=== PATIENT | female | born 1950 | race Caucasian/White ===

== ENCOUNTER 2020-07-23 07:25 | Day surgery (SDC) | payer MEDICARE, OTHER, MEDICAID, SELFPAY ==
[2020-07-23] MEDS: Tropicam./Phenyleph. (1/2.5%) 5 ML BTL OD ×3 (07:58→08:09)
[2020-07-23 07:59] VITALS: BP 134/71; PULSE 74; RESP 16; TEMP 36; O2SAT 95
[2020-07-23] MEDS: Balanced Salt Soln.-PLUS 500 ML BAG (09:16)
[2020-07-23] MEDS: Duovisc Viscoelastic System EACH 1 EACH (09:17)
[2020-07-23] MEDS: Lidocaine 1% Pres-Free 5 ML VIAL (09:18)
[2020-07-23] MEDS: Lidocaine 2% Jelly 6 ML SYR (09:20)
[2020-07-23] MEDS: Tetracaine 0.5% 4 ML BTL OD (09:21)
[2020-07-23] MEDS: Povidone-Iodine Ophth 30 ML BTL (09:21)
--- NOTE | 2020-07-23 09:39 | W.PM.DSUDISC ---
Discharge Plan Disposition Patient Disposition: HOME Condition: Good Discharge Details Attending Provider: Domenic Epstein Primary Care Provider: Deepika Hunt Home Meds and New Rx's Prescriptions: No Action prednisone 10 mg Tablet 10 mg PO DIRECTED RF: 0 ibuprofen 800 mg Tablet 800 mg PO TID RF: 0 lisinopril 20 mg Tablet 20 mg PO DAILY RF: 0 sertraline 100 mg Tablet 200 mg PO DAILY RF: 0 loperamide 2 mg Tablet 2 - 4 mg PO DAILY PRNRF: 0 amlodipine 5 mg Tablet 5 mg PO DAILY RF: 0 sulfamethoxazole-trimethoprim [Bactrim DS] 800-160 mg Tablet 1 tab PO Q12H RF: 0 omeprazole 40 mg Capsule,Delayed Release(Dr/Ec) 40 mg PO DAILY RF: 0 simvastatin 40 mg Tablet 40 mg PO DAILY RF: 0 aspirin 81 mg Capsule,Delayed Release(Dr/Ec) 81 mg PO DAILY RF: 0 lorazepam 0.5 mg Tablet 0.5 mg PO TID PRNRF: 0 ascorbic acid (vitamin C) [Vitamin C] 500 mg Capsule, Extended Release 500 mg PO DAILY RF: 0 loratadine 10 mg Tablet 10 mg PO DAILY RF: 0 cholecalciferol (vitamin D3) [Vitamin D3] 50 mcg (2,000 unit) Capsule 2,000 unit PO DAILY RF: 0 biotin 1,000 mcg Tablet,Chewable 1,000 mcg PO DAILY RF: 0 Discharge Instructions Stand Alone Forms: Post-op Topical Cataract, Donn Corrales (DSU) Discharge Orders Discharge Orders: Discharge Order (Routine); Ordered 07/23/20 Ordered By: Domenic Epstein DS: Diagnosis Discharge Diagnosis (1) Nuclear sclerotic cataract of right eye: Status: Resolved (2) Cortical cataract of right eye: Status: Resolved
--- NOTE | 2020-07-23 09:40 | ROE_ITS ---
Date of service: 07/23/20 Time of Service: 09:40 Operative Note Operative Note DATE OF PROCEDURE: 07/23/20 PRE-OP DIAGNOSIS: Nuclear/cortical cataract, right eye POST-OP DIAGNOSIS: same PROCEDURE: Cataract extraction using phacoemulsification with intraocular lens implant, right eye SURGEON: Domenic Epstein ANESTHESIA TYPE: Local By Surgeon and MAC Refer to Anesthesia Record ESTIMATED BLOOD LOSS: 0 PATHOLOGY: none sent COMPLICATIONS: None Patient was transported to: same day Patient's condition: stable Implants: [employer] / [employer] Tecnis [id number] intraocular lens Indications: Progressive decreased vision due to cataract, right eye Procedure Description: CATARACT SURGERY OPERATIVE REPORT PREOPERATIVE DIAGNOSIS: Nuclear/cortical cataract, right eye POSTOPERATIVE DIAGNOSIS: Same OPERATION: Cataract extraction using phacoemulsification with posterior chamber intraocular lens implant, right eye. 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: [employer] Vision / ENRIKE Tecnis ZCB00 IOL Power: + 22.5 diopters IOL Serial Number: [id number] Optic Diameter: 6.0mm Haptic/Overall Diameter: 13.0mm PHACO INFO: Josiah hurleypalmerflatturion Vision System with OZil and Active Fluidics Cumulative Dispersed Energy (CDE): 4.96 seconds SURGEON: Domenic Epstein MD, LAURA ANESTHESIA: Monitored Anesthesia Care (MAC), with local sub-tenon's anesthetic infiltration COMPLICATIONS: None SPECIMENS: None INDICATIONS FOR PROCEDURE: The patient is a 70-year-old lady with a history of diminished visual acuity in her right eye secondary to the development of nuclear and cortical cataract. The option of cataract surgery was offered to the patient and she felt she was symptomatic enough that she wished to proceed. PROCEDURE: The correct surgical eye was identified and marked as the right eye and the pupil was dilated in the preoperative area using mydriatics and cycloplegics. The dilated pupil size was 6.5 mm. Oral sedation was administered in the form of an Imprimis MKO Melt (midazolam 3mg/ketamine 25mg/ondansetron 2mg). The patient was brought to the operating room where cardiopulmonary monitoring was instituted and surgical time-out was performed, confirming the correct operative eye and IOL power. Topical anesthesia was administered and ophthalmic povidone-iodine 5% was instilled into the conjunctival fornices. Lidocaine gel was applied to the cornea and the katerina-ocular area was prepped with Betadine 10% solution and draped in the usual sterile fashion for intraocular surgery, including an aperture drape. A Tegaderm transparent film dressing was cut in half and used to cover the lashes and lid margins. Care was taken to sequester the lashes and lid margins under the Tegaderm dressing. A lid speculum was placed between the lids of the operative eye and the Jojo-Kimberley operating microscope was maneuvered into position. Madeline scissors were then used to make a conjunctival buttonhole approximately 6mm posterior to the limbus in the inferonasal quadrant. Blunt dissection was carried out to expose bare sclera, and a blunt-tipped sub-tenon?s anesthesia cannula was introduced and passed posteriorly along the globe where non- preserved plain lidocaine was injected into posterior sub-Tenon?s space. A sideport knife was used to make a paracentesis port inferiortemporally. Intraocular phenylephrine/lidocaine was injected into the anterior chamber. The anterior chamber was then filled with viscoelastic. A 2.4mm keratome knife was used to create a half-thickness groove at the limbus and then to construct a three-plane near-clear corneal tunnel extending 2.0mm into clear cornea in the superiortemporal position. . A flap was raised on the anterior capsule and capsulorhexis forceps were used to complete a continuous curvilinear capsulorhexis of 5.5 mm. Balanced salt solution was then used to perform cortical cleaving hydrodissection and nuclear hydrodelineation until the lens could be freely rotated within the capsular bag. The lens nucleus was then disassembled and removed within the capsular bag and iris plane using phacoemulsification. Residual cortical material was removed using the I/A handpiece. The posterior capsule was carefully polished to remove as much residual lens epithelial cells as safely possible. The capsular bag was then inflated and the anterior chamber deepened with viscoelastic. The lens implant described above was inserted into the capsular bag using the ENRIKE [place] Injector. A Kuglen hook was used to dial the IOL into position. Residual viscoelastic was then removed first from posterior to the IOL, then from the anterior chamber using the I/A handpiece. The lens implant was noted to center nicely within the capsular bag. The incisions were stromally hydrated, and the anterior chamber was reformed using BSS. Then 0.5cc of moxifloxacin 1.0mg/ml were injected into the capsular bag and anterior chamber. The incisions were checked with a Weck spear and found to be secure. Several drops of ophthalmic povidone-iodine 5% were then applied to the eye followed by two drops of Imprimis combination prednisolone/moxifloxacin/nepafenac solution. The drapes were removed and a clear plastic protective eye shield was placed over the eye. The patient was then returned to [facility] in stable condition.
[2020-07-23 10:04] VITALS: BP 123/66; PULSE 91; RESP 16; TEMP 36.2; O2SAT 94
== END 2020-07-23 10:12 | disposition home or self-care (01) ==
PROVIDERS: PCP Internal Medicine; Visit Provider Ophthalmology
PROC: (CPT 66984; principal; 2020-07-23 09:30)
DX: H25.011 Cortical age-related cataract, right eye (principal); H25.11 Age-related nuclear cataract, right eye
CPT/HCPCS: 66984; V2632

== ENCOUNTER 2023-11-29 08:02 | Emergency (ER) | payer MEDICARE, MEDICAID, SELFPAY ==
[2023-11-29] VITALS (32 sets, daily range): BP systolic 148–160; BP diastolic 42–68; PULSE 67–78; RESP 13–21; TEMP 36.8; O2SAT 83–96
--- NOTE | 2023-11-29 08:00 | RT.EKG_ITS ---
APPROVED REPORT Exam: Resting ECG Reason for Exam: Chest Pain Patient Location: E HR:69 bpm ECG Measurements Heart Rate 69 AXIS WY 173 P 31 QRSd 94 QRS 4 QT 412 T 37 QTc 441 Conclusion Sinus rhythm...normal P axis, V-rate 60- 99 sinus rhythm, normal axis, normal intervals, non ischemic
--- NOTE | 2023-11-29 08:15 | DI.CT_ITS ---
Exam(s) CT CHEST PE ABD PELVIS W EXAM: CT CHEST PE ABD PELVIS W CLINICAL HISTORY: abd pain distention, chest pain pleuritic. TECHNIQUE: Imaging Protocol: Axial CT angiography was performed with multi-slice acquisition and mu lti-planar and/or 3D reconstructions. CONTRAST MATERIAL: Intravenous: Omnipaque 350 Contrast volume:100 ml COMPARISON: No exams were available for comparison FINDINGS: CHEST: Pulmonary Arteries: No evidence of filling defects to suggest pulmonary emboli. Tracheobronchial tree: No bronchiectasis or mucus plugging. Mediastinum and Kimberly: No dominant adenopathy or fluid collection. Pulmonary parenchyma: No consolidation or dominant measurable mass. Mild basilar atelectasis. Kobi cified granuloma right upper lobe. Pleura: No effusion. No pneumothorax. Heart: The heart is mildly dilated. Mild coronary artery calcifications are seen. Aorta: Thoracic aorta non-dilated. Atherosclerotic changes. Bones: Severe degenerative changes of the right shoulder. Mild scoliosis. No compression fractures. Tubes, Catheters, and Lines: None. Soft tissues: Unremarkable. ABDOMEN and PELVIS: Liver: Normal size. Normal density. No suspicious measurable mass. Portal, Superior Mesenteric, and Splenic Veins: Unremarkable. Gallbladder and Biliary Tract: No radiodense calculus. No biliary dilatation. Pancreas: Normal density, no abnormal calcifications or inflammatory process. Spleen: Mildly enlarged at 13.7 cm in length. Adrenals: No masses seen. Kidneys: Normal size, contour and axis. No radiodense stones. No obstructive uropathy. No masses seen . Vasculature: Abdominal aorta non-dilated. Pndx-gx-xiuzhjxn atherosclerotic changes. Bowel: No obstruction or bowel wall thickening. Normal quantity of stool. Appendix is not seen. Diverticulosis. No evidence of diverticulitis. Peritoneal Cavity: Small to moderate quantity of ascites. No focal collection or mesenteric inflamma tory response. Lymph Nodes: Within normal limits. Soft Tissues: Unremarkable. Bladder: Symmetric distention, no gross wall thickening. Reproductive Organs: Unremarkable as visualized. Bones: Degenerative changes in the lumbar spine. IMPRESSION: 1. No evidence of pulmonary embolism or other acute abnormality in the chest. 2. Mild to moderate quantity of ascites. Diverticulosis without evidence of diverticulitis. No evid ence of bowel obstruction or findings to suggest ischemia. Spleen mildly enlarged. 3. Findings called to Dr. Nathan of the emergency department. RADIATION DOSE DELIVERED: Total DLP DATA REPOSITORY: All CT scans at this facility are submitted to the National Radiology Data Registry (NRDR) Dose Index Registry (DIR) with the [employer] (ACR). RADIATION OPTIMIZATION: All CT scans at this facility use at least one of these dose optimization te chniques: automated exposure control; mA and/or kV adjustment per patient size (includes targeted exa ms where dose is matched to clinical indication); or iterative reconstruction.
--- NOTE | 2023-11-29 08:21 | ED.GENADUL_ITS ---
Discharge Plan Disposition Patient Disposition: Home Condition: Improving Discharge Details Chief Complaint: Chest Pain Clinical Impression: Ascites, Splenomegaly Primary Care Provider: Deepika Hunt ED Provider: Domenic Nathan Home Meds and New Rx's Prescriptions: No Action ibuprofen 800 mg Tablet 800 mg PO TID lisinopril 20 mg Tablet 20 mg PO DAILY sertraline 100 mg Tablet 200 mg PO DAILY loperamide 2 mg Tablet 2 - 4 mg PO DAILY PRN amlodipine 5 mg Tablet 5 mg PO DAILY omeprazole 40 mg Capsule,Delayed Release(Dr/Ec) 40 mg PO DAILY simvastatin 40 mg Tablet 40 mg PO DAILY aspirin 81 mg Capsule,Delayed Release(Dr/Ec) 81 mg PO DAILY lorazepam 0.5 mg Tablet 0.5 mg PO TID PRN ascorbic acid (vitamin C) [Vitamin C] 500 mg Capsule, Extended Release 500 mg PO DAILY loratadine 10 mg Tablet 10 mg PO DAILY cholecalciferol (vitamin D3) [Vitamin D3] 50 mcg (2,000 unit) Capsule 2,000 unit PO DAILY biotin 1,000 mcg Tablet,Chewable 1,000 mcg PO DAILY Discharge Instructions Instructions: Fluid in the belly (ascites) Additional Instructions: You were found to have fluid in your abdominal cavity which is called ascites. This can be caused by a number of issues. Please follow-up closely with your primary care physician. Consider having hepatic panel and hepatitis panel drawn also discussed the possibility of further imaging such as PET scan or MRI. If your symptoms are worsening please return to the emergency department. You may need a paracentesis to draw fluid off of your abdomen to help with her symptoms and also diagnose what is causing the fluid to accumulate. HPI General Date/Time Provider Initiated Documentation: 11/29/23 08:11 . HPI Narrative: 73-year-old female presents with abdominal pain and distention over the last couple of days now associated with pleuritic chest pain bilateral inferior ribs rating to left shoulder, mild shortness of breath, denies history of coronary disease or thromboembolic disease, denies history of abdominal surgery. Related Data Home Medications ?Medication ?Instructions ?Recorded ?Confirmed amlodipine 5 mg tablet 5 mg PO DAILY 07/21/20 11/29/23 ascorbic acid (vitamin C) 500 mg 500 mg PO DAILY 07/21/20 11/29/23 capsule,extended release (Vitamin C) aspirin 81 mg capsule,delayed 81 mg PO DAILY 07/21/20 11/29/23 release biotin 1,000 mcg chewable tablet 1,000 mcg PO DAILY 07/21/20 11/29/23 cholecalciferol (vitamin D3) 50 2,000 unit PO DAILY 07/21/20 11/29/23 mcg (2,000 unit) capsule (Vitamin D3) ibuprofen 800 mg tablet 800 mg PO TID 07/21/20 11/29/23 lisinopril 20 mg tablet 20 mg PO DAILY 07/21/20 11/29/23 loperamide 2 mg tablet 2 - 4 mg PO DAILY PRN 07/21/20 11/29/23 loratadine 10 mg tablet 10 mg PO DAILY 07/21/20 11/29/23 lorazepam 0.5 mg tablet 0.5 mg PO TID PRN 07/21/20 11/29/23 omeprazole 40 mg capsule,delayed 40 mg PO DAILY 07/21/20 11/29/23 release sertraline 100 mg tablet 200 mg PO DAILY 07/21/20 11/29/23 simvastatin 40 mg tablet 40 mg PO DAILY 07/21/20 11/29/23 Allergies Allergy/AdvReac Type Severity Reaction Status Date / Time No Known Allergies Allergy Unverified 11/29/23 08:12 General Stated Complaint: Chest Pain AMADO: 2 Exam Narrative Exam Narrative: Resting comfortably no acute distress Moist mucous membranes tolerating secretions Normal heart sounds no murmurs rubs or gallops Lungs clear bilaterally no wheezes rales or rhonchi Abdomen mildly distended tender with involuntary guarding in the upper quadrants, no palpable mass No peripheral edema Alert oriented interactive moving all extremities without deficit Course Vital Signs Vital signs: Vital Signs Temperature 36.8 C 11/29/23 08:05 Pulse 72 11/29/23 08:05 Respiratory Rate 17 11/29/23 08:05 Blood Pressure 160/68 H 11/29/23 08:05 Pulse Oximetry 94 11/29/23 08:05 Temperature 36.8 C 11/29/23 08:05 Temperature Source Skin 11/29/23 08:05 Pulse 72 11/29/23 08:05 Respiratory Rate 17 11/29/23 08:05 Respiratory Effort Normal, Non-Labored, Short of Breath 11/29/23 08:10 Blood Pressure 160/68 H 11/29/23 08:05 Blood Pressure Position Supine 11/29/23 08:05 Pulse Oximetry 94 11/29/23 08:05 Oxygen Delivery Method Room Air 11/29/23 08:05 Oxygen Flow Rate 0 11/29/23 08:05 Pain Level 9 11/29/23 08:05 Medical Decision Making 73-year-old female presents with abdominal pain and distention over the last couple of days now associated with pleuritic chest pain bilateral inferior ribs rating to left shoulder, mild shortness of breath, denies history of coronary disease or thromboembolic disease, denies history of abdominal surgery. Patient hemodynamically stable involuntary guarding on abdominal exam, no oxygen requirement or tachypnea afebrile. Consider intra-abdominal process leading to splinting of respirations, consider cholecystitis versus biliary colic versus gastritis versus duodenitis versus enteritis or colitis most also consider aortic pathology, given pleuritic chest pain rating to left shoulder consider PE versus ACS, will obtain screening labs CT chest abdomen pelvis EKG normal sinus rhythm normal axis normal intervals nonischemic. Analgesia antiemetics fluids disposition pending results and imaging 12: 28 patient resting comfortably no acute distress hemodynamically stable nonperitoneal. No evidence of PE or ACS at this juncture. Patient does have moderate ascites on CT scan. As well as some splenomegaly. Consider postviral syndrome with some extravasation of peritoneal fluid must also consider occult malignancy. Patient did have normal upper and lower endoscopies recently. Patient is not a heavy drinker does not have any history of hepatitis. E ncouraging close outpatient workup in the coming weeks to consider hepatic panel otitis panel PET/MRI versus diagnostic paracentesis. At this juncture there is no large clear pockets for diagnostic paracentesis at bedside here. Home care instructions and strict return precautions given. Quality:SDOH Health Related Social Needs: No Data to Display PFSH All Active Problems (Updated 11/29/23 @ 12:32 by Domenic Nathan MD) Splenomegaly (Acute) Ascites (Acute) Medical History (Updated 11/29/23 @ 12:32 by Domenic Nathan MD) Pain in right knee Fracture of patella Abdominal tenderness, left lower quadrant Enthesopathy of hip region Disorder of spinal region Low back pain Neck pain Arthropathy UTI (urinary tract infection) IBS (irritable bowel syndrome) Chronic gingivitis Seasonal allergic rhinitis Hypertensive disorder Insomnia Depressive disorder Nicotine dependence Dysthymia BRAYAN (generalized anxiety disorder) Panic disorder without agoraphobia Hyperlipidemia Onychomycosis due to dermatophyte Surgical History (Updated 07/23/20 @ 09:39 by Domenic Epstein MD) Hx of rotator cuff surgery right Hx of thumb surgery History of orthopedic surgery Hx of colonoscopy Social History Smoking/Tobacco Use Status: Current-Occasional Tobacco Type: cigarettes Smoking risk assessment performed?: Yes Alcohol Intake: current Alcohol Intake frequency: 0-2 drinks per day Alcohol type: wine Substance use type: does not use Do you feel safe at home: Yes Additional Social history: lives alone PAWSS Have you Been Recently Intoxicated or Drunk Within the Last 30 days?: No Have you Ever Experienced Previous Episodes of Alcohol Withdrawal?: No Have you ever Experienced Withdrawal Seizures?: No Have you ever Experienced Delirium Tremens(DT)s?: No Have you ever undergone Alcohol Rehabilitation Treatment (i.e, inpt ot outpatient treatment programs)?: No Have you ever Experienced Blackouts?: No Have you ever Combined Alcohol with other Downers within the last 90 days?: No Have you ever Combined Alcohol with any other Substance of Abuse during the last 90 days?: No Positive Blood Alcohol level on Presentation? [PCS.BAL]: No Evidence of Increased Autonomic Activity (i.e. HR>120, tremor, sweating, agitation, nausea)?: No Result: 0
[2023-11-29 08:29] LABS: Abs Immature Grans 0.05 10^3/uL (0.0-0.06); Absolute Basophil Count 0.02 10^3/uL (0.0-0.2); Absolute Eosinophil Count 0.11 10^3/uL (0.0-0.7); Absolute Lymphocyte Count 1.18 10^3/uL (1.2-3.4); Absolute Monocyte Count 0.54 10^3/uL (0.1-0.8); Absolute Neutrophil Count 5.46 10^3/uL (1.2-6.7); Basophils % 0.3 %; Eosinophils % 1.5 %; HCT 31.8 % (36.0-46.0); HGB 11.3 g/dL (11.2-15.7); Immature Grans % 0.7 %; MCH 33.5 pg (27.0-33.0); MCHC 35.5 % (32.0-36.0); MCV 94 fL (80-95); MPV 9.7 fL (8.0-11.0); Monocytes % 7.3 %; Neutrophils % 74.2 %; Platelet Count 161 10^3/uL (130-400); RBC 3.37 10^6/uL (3.93-5.22); RDW 12.1 % (11.7-14.6); WBC 7.36 10^3/uL (4.4-10.8)
[2023-11-29 08:44] LABS: PTT Activated 18.3 sec (23.6-32.8); Prothrombin Time 9.9 sec (9.1-11.1)
[2023-11-29] MEDS: Normal Saline 1,000 ML 1000 ML IV (09:54)
[2023-11-29 09:56] LABS: Bilirubin Negative (Negative); Blood Negative (Negative); Clarity Clear (Clear); Glucose Negative (Negative); Ketones Negative (Negative); Leukocyte Esterase Negative (Negative); Nitrite Negative (Negative); Urobilinogen 0.2 mg/dL (Up to 0.2)
[2023-11-29 09:59] LABS: COVID-19 PCR Negative (Negative); Influenza A PCR Negative (Negative); Influenza B PCR Negative (Negative); RSV PCR Negative (Negative)
[2023-11-29 10:00] LABS: Source Nasopharynx
[2023-11-29 10:02] LABS: ALT 22 U/L (14-59); AST 21 U/L (15-37); Albumin 3.9 g/dL (3.4-5.0); Alkaline Phosphatase 80 U/L (46-116); Anion Gap 9.2 mmol/L (3-11); BUN 24 mg/dL (7-18); Bilirubin, Total 0.72 mg/dL (0.2-1.0); CO2 25.8 mmol/L (21.0-32.0); CREATININE 0.8 mg/dL (0.55-1.02); Calcium 8.7 mg/dL (8.5-10.1); Chloride 107 mmol/L (98-107); Estimated GFR 78.24 (mL/min/1.73m2); Glucose 114 mg/dL (74-106); Lipase 24 U/L (16-77); NT-proBNP 80 pg/mL (<300); Potassium 4.1 mmol/L (3.5-5.1); Sodium 142 mmol/L (136-145); Total Protein 6.7 g/dL (6.4-8.2); Troponin I < 50 ng/L (< or =60)
[2023-11-29] MEDS: Normal Saline - Diluent 50 ML VIAL IJ (10:13)
[2023-11-29] MEDS: Omnipaque 350 MG/ML 100 ML BTL IJ (10:14)
[2023-11-29 11:59] LABS: Troponin I < 50 ng/L (< or =60)
== END 2023-11-29 12:36 | disposition home or self-care (01) ==
PROVIDERS: Emergency Provider Emergency Medicine; PCP Internal Medicine
DX: R07.9 Chest pain, unspecified (principal); R18.8 Other ascites; R16.1 Splenomegaly, not elsewhere classified; M25.512 Pain in left shoulder; R06.02 Shortness of breath
CPT/HCPCS: 36415; 71275; 74177; 80053; 83690; 86850; 86900; 86901; 87637; 93005; 96360; 99285; 81003; 83880; 84484; 85025; 85610; 85730; 93010; 99283; J3490

== ENCOUNTER 2024-11-10 19:12 | Emergency (ER) | payer MEDICARE, MEDICAID, SELFPAY ==
[2024-11-10] VITALS (21 sets, daily range): BP systolic 124–170; BP diastolic 51–77; PULSE 65–84; RESP 16–18; TEMP 36.9; O2SAT 91–96
--- NOTE | 2024-11-10 20:09 | W.ED.GENAD ---
Discharge Plan Disposition Condition: Stable Discharge Details Chief Complaint: Orthopedic Clinical Impression: Fracture of multiple pubic rami Primary Care Provider: Deepika Hunt ED Provider: Raul De Jesus Home Meds and New Rx's Prescriptions: No Action ibuprofen 800 mg Tablet 800 mg PO TID lisinopril 20 mg Tablet 20 mg PO DAILY sertraline 100 mg Tablet 200 mg PO DAILY loperamide 2 mg Tablet 2 - 4 mg PO DAILY PRN amlodipine 5 mg Tablet 5 mg PO DAILY omeprazole 40 mg Capsule,Delayed Release(Dr/Ec) 40 mg PO DAILY simvastatin 40 mg Tablet 40 mg PO DAILY aspirin 81 mg Capsule,Delayed Release(Dr/Ec) 81 mg PO DAILY lorazepam 0.5 mg Tablet 0.5 mg PO TID PRN ascorbic acid (vitamin C) [Vitamin C] 500 mg Capsule, Extended Release 500 mg PO DAILY loratadine 10 mg Tablet 10 mg PO DAILY cholecalciferol (vitamin D3) [Vitamin D3] 50 mcg (2,000 unit) Capsule 2,000 unit PO DAILY biotin 1,000 mcg Tablet,Chewable 1,000 mcg PO DAILY trazodone 150 mg tablet 150 mg PO QHS PRN HPI General Date/Time Provider Initiated Documentation: 11/10/24 19:37. HPI Narrative: 74 year-old female presents to ED today by EMS with a chief complaint of L hip pain from a fall over flip-flops at home with onset around 1330 today. Quality described as minor bump to forehead as well, but no neck pain or LOC, endorses L hip pain, no radiation to leg shortening or deformity, numbness/tingling, rib pain, shortness of breath, abdominal pain, fever, nausea/vomiting. Severity is described as severe. Palliating factors include takes Tylenol and tramadol at baseline- not helping. Provoking factors include any movement. Patient not anticoagulated. Related Data Home Medications ?Medication ?Instructions ?Recorded ?Confirmed amlodipine 5 mg tablet 5 mg PO DAILY 07/21/20 11/10/24 ascorbic acid (vitamin C) 500 mg 500 mg PO DAILY 07/21/20 11/10/24 capsule,extended release (Vitamin C) aspirin 81 mg capsule,delayed 81 mg PO DAILY 07/21/20 11/10/24 release biotin 1,000 mcg chewable tablet 1,000 mcg PO DAILY 07/21/20 11/10/24 cholecalciferol (vitamin D3) 50 2,000 unit PO DAILY 07/21/20 11/10/24 mcg (2,000 unit) capsule (Vitamin D3) ibuprofen 800 mg tablet 800 mg PO TID 07/21/20 11/10/24 lisinopril 20 mg tablet 20 mg PO DAILY 07/21/20 11/10/24 loperamide 2 mg tablet 2 - 4 mg PO DAILY PRN 07/21/20 11/10/24 loratadine 10 mg tablet 10 mg PO DAILY 07/21/20 11/10/24 lorazepam 0.5 mg tablet 0.5 mg PO TID PRN 07/21/20 11/10/24 omeprazole 40 mg capsule,delayed 40 mg PO DAILY 07/21/20 11/10/24 release sertraline 100 mg tablet 200 mg PO DAILY 07/21/20 11/10/24 simvastatin 40 mg tablet 40 mg PO DAILY 07/21/20 11/10/24 trazodone 150 mg tablet 150 mg PO QHS PRN 11/10/24 11/10/24 Allergies Allergy/AdvReac Type Severity Reaction Status Date / Time No Known Allergies Allergy Unverified 11/10/24 19:42 General Stated Complaint: Orthopedic AMADO: 3 Review of Systems All systems reviewed & are unremarkable except as noted in HPI and below Exam Narrative Exam Narrative: GENERAL APPEARANCE: Well-nourished, non-toxic, awake and alert, atraumatic, moderate acute distress. SKIN: Warm, pink, dry, intact, without rashes/lesions/ulcerations. HEAD: Normocephalic, atraumatic, normal hair distribution for gender/age. EYES: Normal conjunctiva, no exudates on lids/lashes. ENT: Nares patent, no circumoral cyanosis, no facial swelling NECK: Supple, trachea midline, painless cervical ROM. LUNGS/CHEST: Non-labored respirations, normal A/P diameter, symmetrical expansion, no chest wall deformity HEART (CV/PV): Regular rate, no peripheral edema, no JVD, L dorsalis pedis pulse 2+ ABDOMEN: Soft, non-distended, no guarding, no abdominal rigidity or tenderness. MSK: Normal ROM, no swelling/deformity to bilateral UEs, moving 3 extremities without weakness, no cyanosis, spine midline without tenderness, normal curvature, L LE: Exquisite hip tenderness without overt crepitus or ecchymosis, no dependent ecchymosis, able to plantar/dorsiflex the foot, sensation intact in the distal left leg NEURO: Mental Status AAOx4 - alert to person, place, time, events No facial droop, no forehead involvement. Motor: No focal weakness - strength 5/5 in bilateral UEs and LEs, proximal and distal, symmetric. Sensory: sensation intact to light touch globally. Gait NT. PSYCH: euthymic, cooperative, pleasant, appropriate speech Course Vital Signs Vital signs: Vital Signs Temperature 36.9 C 11/10/24 19:33 Pulse 84 11/10/24 19:33 Respiratory Rate 18 11/10/24 19:33 Blood Pressure 145/77 H 11/10/24 19:33 Temperature 36.9 C 11/10/24 19:33 Pulse 84 11/10/24 19:33 Respiratory Rate 18 11/10/24 19:33 Blood Pressure 145/77 H 11/10/24 19:33 Oxygen Delivery Method Room Air 11/10/24 19:33 Oxygen Flow Rate 0 11/10/24 19:33 Pain Level 10 11/10/24 19:33 Medical Decision Making This dictation utilizes [id number] dictation software and may contain unedited grammatical errors. 74 year-old female presents to ED today by EMS with a chief complaint of L hip pain from a fall over flip-flops at home with onset around 1330 today. Quality described as minor bump to forehead as well, but no neck pain or LOC, endorses L hip pain, no radiation to leg shortening or deformity, numbness/tingling, rib pain, shortness of breath, abdominal pain, fever, nausea/vomiting. Severity is described as severe. Palliating factors include takes Tylenol and tramadol at baseline- not helping. Provoking factors include any movement. Patients' medical history: Low back pain, generalized anxiety disorder. Family and social history: lives independently, eats healthy diet, no recent travel. Pertinent exam findings / vital signs include L hip tenderness without crepitus at greater trochanter, no internal/external rotation or deformity of L leg, sensation and motor function intact distally, L dorsalis pedis 2+, benign abdomen. Differential / pathologies of concern include fracture, sprain/strain. Diagnostic studies of: -XR L Hip - shows suprerior and inferior L pubic rami fractures. Interventions of: -PT consult qAM- patient cannot attempt ambulation at this time. -Consult with Dr. Izquierdo, obs for pain control and inability to ambulate only. -2mg morphine IVP PRN prior to XR ED Course/Assessment/Plan: 74-year-old female has fractures of the left superior and inferior rami pubic bones, no abnormality distal to the injury and no other apparent injury besides a central forehead minor contusion without loss of consciousness or neuro abnormality. I spoke with Dr. Izquierdo who recommended ambulation with a walker, patient does not feel she can do this adequately right now and has no strength to do it this evening, she prefers PT consult with possible home health services with that eval tomorrow here in the ED, we are full upstairs this evening, patient is resting comfortably and has no severe pain with immobilization in ED bed, signed out to Dr. Vishnu Mobley at shift change with PT consult already ordered. Findings not consistent with neurovascular compromise. Disposition of Fracture of Multiple Pubic Rami. Patient verbalized understanding of the plan and return to ED criteria and engaged in shared decision making. Medical Records Medical records reviewed: Yes I reviewed the patient's medical records. Imaging Data Radiologic Study: Attestation: I personally reviewed and interpreted this imaging study as follows: Imaging: X-Ray Radiologist's impression: Exam: XR Left Hip Exam date and time: 11/10/2024 8:59 PM Age: 74 years old Clinical indication: Left hip; L hip pain after fall TECHNIQUE: Imaging protocol: Radiologic exam of the left hip. Views: 2 or 3 views hip with pelvis when performed. COMPARISON: CT CHEST PE ABD PELVIS W 11/29/2023 10:21 AM FINDINGS: Bones/joints: Fracture of the left superior and inferior pubic ramus. Mild osteoarthritis of the left hip. Osteoarthritis of the left hip. Soft tissues: Unremarkable. IMPRESSION: Fractures of the left superior and inferior pubic ramus. Dictated and Authenticated by: Nish Francisco MD. [facility] All Active Problems (Updated 11/10/24 @ 23:23 by JOHN Calderon) Fracture of multiple pubic rami (Acute) Medical History (Updated 11/10/24 @ 23:23 by JOHN Calderon) Pain in right knee Fracture of patella Abdominal tenderness, left lower quadrant Enthesopathy of hip region Disorder of spinal region Low back pain Neck pain Arthropathy UTI (urinary tract infection) IBS (irritable bowel syndrome) Chronic gingivitis Seasonal allergic rhinitis Hypertensive disorder Insomnia Depressive disorder Nicotine dependence Dysthymia BRAYAN (generalized anxiety disorder) Panic disorder without agoraphobia Hyperlipidemia Onychomycosis due to dermatophyte Surgical History (Updated 07/23/20 @ 09:39 by Domenic Epstein MD) Hx of rotator cuff surgery right Hx of thumb surgery History of orthopedic surgery Hx of colonoscopy Social History Smoking/Tobacco Use Status: Current-Occasional Tobacco Type: cigarettes Smoking risk assessment performed?: Yes Alcohol Intake: current Alcohol Intake frequency: a few times a week Alcohol type: beer, wine and hard liquor Substance use type: does not use Do you feel safe at home: Yes Additional Social history: lives alone PAWSS Have you Been Recently Intoxicated or Drunk Within the Last 30 days?: No Have you Ever Experienced Previous Episodes of Alcohol Withdrawal?: No Have you ever Experienced Withdrawal Seizures?: No Have you ever Experienced Delirium Tremens(DT)s?: No Have you ever undergone Alcohol Rehabilitation Treatment (i.e, inpt ot outpatient treatment programs)?: No Have you ever Experienced Blackouts?: No Have you ever Combined Alcohol with other Downers within the last 90 days?: No Have you ever Combined Alcohol with any other Substance of Abuse during the last 90 days?: No Positive Blood Alcohol level on Presentation? [PCS.BAL]: No Evidence of Increased Autonomic Activity (i.e. HR>120, tremor, sweating, agitation, nausea)?: No Result: 0
--- NOTE | 2024-11-10 20:15 | DI.RAD_ITS ---
Exam(s) XR HIP LT COMPLETE AP PELVIS EXAM: XR HIP LT COMPLETE AP PELVIS CLINICAL HISTORY: L hip pain. TECHNIQUE: 2D digital imaging was performed of the left hip. Three views were obtained. AP pelvis and lateral left hip views were obtained. COMPARISON: No exams were available for comparison FINDINGS: BONES: There is an acute nondisplaced fracture of the superior pubic ramus on the left. There is an irregularity of the cortex of the left inferior pubic ramus consistent with a nondisplaced fracture. No bony destructive lesion is seen. JOINTS: No dislocation present. The left hip is well maintained. The sacroiliac joints are unremarkable as is the symphysis pubis. SOFT TISSUE: Normal. IMPRESSION: 1. Acute nondisplaced fractures involving the left superior and inferior pubic rami. 2. The preliminary [facility] report was reviewed. DATA REPOSITORY: RADIATION DOSE DELIVERED:
[2024-11-10] MEDS: MORPHine 10 MG/ML VIAL 2 MG IVP (20:45)
--- NOTE | 2024-11-10 22:24 | DI.[facility]_ITS ---
PROCEDURE INFORMATION: Exam: XR Left Hip Exam date and time: 11/10/2024 8:59 PM Age: 74 years old Clinical indication: Left hip; L hip pain after fall TECHNIQUE: Imaging protocol: Radiologic exam of the left hip. Views: 2 or 3 views hip with pelvis when performed. COMPARISON: CT CHEST PE ABD PELVIS W 11/29/2023 10:21 AM FINDINGS: Bones/joints: Fracture of the left superior and inferior pubic ramus. Mild osteoarthritis of the left hip. Osteoarthritis of the left hip. Soft tissues: Unremarkable. IMPRESSION: Fractures of the left superior and inferior pubic ramus. Dictated and Authenticated by: Nish Francisco MD. Orderin Neal Carter MD
--- NOTE | 2024-11-10 23:34 | NUR.NOTE ---
Nursing Note: Updated daughter Devang, plan to stay in ED over night and PT eval in the AM. Okay to eat and drink.
[2024-11-11] VITALS (20 sets, daily range): BP systolic 133–167; BP diastolic 66–97; PULSE 72–84; RESP 16; TEMP 36.9; O2SAT 91–99
[2024-11-11] MEDS: MORPHine 10 MG/ML VIAL 2 MG IVP ×3 (00:24→06:12)
--- NOTE | 2024-11-11 06:31 | OCONE_ITS ---
History of Present Illness Narrative: Charity is a 74-year-old functionally dependent female who tripped over flip- flops yesterday afternoon. She landed mostly onto her left side. She had pain with attempted ambulation and thus was brought into the emergency department for evaluation. She was diagnosed with superior and inferior rami fractures on the left side. She felt unable to ambulate last night due to pain. She denies any preinjury left hip pain. She denies any radicular symptoms. She did have a small bump to her forehead per report but denies any ongoing headache, vision changes, nausea, or vomiting. She does report that the area where she felt was quite small and she was banged around as she went down. Currently the large amount of pain that she has is over the lateral aspect of the proximal left hip. She has been able to reposition and move herself in the bed although certain positions cause more pain laterally. No radicular symptoms. She also reports being about 6 months out from a right reverse total shoulder arthroplasty by Dr. [facility]. This has been doing well and was largely pain-free until this fall where she is now having some pain around the right shoulder. Consults Consult date: 11/11/24 Requesting physician: Raul De Jesus Consult Reason Left Pubic Rami Fractures Assessment and Plan Assessment and plan (1) Fracture of multiple pubic rami: Status: Acute Assessment and plan: Nadira is a 74-year-old female who suffered a fall at home. She has fractures of the superior and inferior pubic ramus. I do not see any violation of the acetabulum or extension into the pelvis destabilizing the pelvis through the posterior anterior columns. This is a stable fracture. She may weight-bear as tolerated with an assistive device. It will hurt. Most that pain would be in the groin region. Currently, her pain is worse laterally which is from a traumatic trochanteric bursitis. She has notable swelling and likely has bled into this area. At this time there is nothing to do for that either. However, I would recommend once again weightbearing as tolerated with the assistive device at all times for 6 weeks. This will offload the abductor musculature and also offload the fracture of the pelvis to allow them to heal. She has no true positioning restrictions although she should try to avoid active abduction and direct pressure to the lateral left hip. Consideration of muscle relaxation may be helpful. Ice to the soft tissues around the lateral left hip. Physical therapy consult with likely discharge to home with home health services. (2) Trochanteric bursitis of left hip: Status: Acute Review of Systems All systems reviewed & are unremarkable except as noted in HPI and below PFSH All Active Problems (Updated 11/11/24 @ 07:44 by Pawel Izquierdo MD) Trochanteric bursitis of left hip (Acute) Fracture of multiple pubic rami (Acute) Medical History Pain in right knee Fracture of patella Abdominal tenderness, left lower quadrant Enthesopathy of hip region Disorder of spinal region Low back pain Neck pain Arthropathy UTI (urinary tract infection) IBS (irritable bowel syndrome) Chronic gingivitis Seasonal allergic rhinitis Hypertensive disorder Insomnia Depressive disorder Nicotine dependence Dysthymia BRAYAN (generalized anxiety disorder) Panic disorder without agoraphobia Hyperlipidemia Onychomycosis due to dermatophyte Surgical History Hx of rotator cuff surgery right Hx of thumb surgery History of orthopedic surgery Hx of colonoscopy Social History Smoking/Tobacco Use Status: Current-Occasional Tobacco Type: cigarettes Smoking risk assessment performed?: Yes Alcohol Intake: current Alcohol Intake frequency: a few times a week Alcohol type: beer, wine and hard liquor Substance use type: does not use Do you feel safe at home: Yes Additional Social history: lives alone Exam Narrative Exam Narrative: Laying in the supine position in the hospital stretcher. No acute distress. Alert and orient x 3. No gross deformity to the head or neck or shoulders. Evaluation of the right shoulder shows a well-healed incision. He is able to tolerate passive forward flexion to 90 degrees, external rotation 45 degrees and internal rotation to the belly. No pain with passive motion. He is also able to show some active forward flexion to about 90 degrees with some generalized discomfort although not specific. No crepitus with range of motion of the right shoulder. Evaluation of the left lower extremity shows exquisite pain palpation over the greater trochanter and the proximal aspect of the left, lateral hip. Minimal pain at the IT band. Some fullness in the hip in this region. No defects in the skin. No obvious ecchymosis. She has no pain to palpation of the knee, leg, ankle, or foot. She has intact ankle dorsiflexion, plantarflexion, great toe extension, great toe flexion. Sensation intact to light touch over the deep and superficial peroneal nerve and tibial nerve. She is able to tolerate passive flexion of the hip to about 80 degrees as well as some passive internal and external rotation without significant increase in pain. She does have some mild pain laterally. She shows some apprehension but no acute report of pain. Results Last Vital Signs Temp 36.9 C 11/10/24 19:33 Pulse 74 11/11/24 06:14 Resp 16 11/11/24 06:14 BP 133/66 11/11/24 06:14 Pulse Ox 99 11/11/24 06:14 Imaging Imaging Studies: X-ray of the left hip demonstrates superior and inferior pubic ramus fractures. In the multiple views I do not see any violation of the ilioischial line. I do not see any fracture in the acetabular dome and no displacement.
--- NOTE | 2024-11-11 07:04 | W.EDPROG ---
Date of service: 11/11/24 Time of Service: 07:26 Medical Decision Making In brief, this is a 74-year-old female patient who sustained a fall complicated by a left superior and inferior pubic rami fracture. At the time that I took over her care her disposition was pending completion of a PT eval given her inability to ambulate with a walker. She has been evaluated by orthopedics, and this injury is nonoperative. The patient was able to ambulate with PT, she did not Dors some sternal pain when pressing against a walker, an EKG was obtained and was nonischemic and I suspect a musculoskeletal etiology for this discomfort as it resolved entirely when at rest. I provided the patient with a course of oral morphine, and counseled her on multimodal pain management with Tylenol and Lidoderm patches. At this time, the patient has had a full medical evaluation and is safe for discharge to home. They are hemodynamically stable, ambulatory, and tolerating PO. They are understanding of the follow-up plan and return precautions. They left our facility without incident. Dai Smith MD Medical Records Medical records reviewed: Yes I reviewed the patient's medical records. Lab Data Lab results reviewed: Yes I reviewed the patient's lab results. Discharge Plan Disposition Patient Disposition: Home Condition: Stable Discharge Details Clinical Impression: Fracture of multiple pubic rami Primary Care Provider: Deepika Hunt ED Provider: Dai Smith Home Meds and New Rx's Prescriptions: New morphine 15 mg tablet 15 mg PO Q6H PRNQty: 10 0RF No Action ibuprofen 800 mg Tablet 800 mg PO TID lisinopril 20 mg Tablet 20 mg PO DAILY sertraline 100 mg Tablet 200 mg PO DAILY loperamide 2 mg Tablet 2 - 4 mg PO DAILY PRN amlodipine 5 mg Tablet 5 mg PO DAILY omeprazole 40 mg Capsule,Delayed Release(Dr/Ec) 40 mg PO DAILY simvastatin 40 mg Tablet 40 mg PO DAILY aspirin 81 mg Capsule,Delayed Release(Dr/Ec) 81 mg PO DAILY lorazepam 0.5 mg Tablet 0.5 mg PO TID PRN ascorbic acid (vitamin C) [Vitamin C] 500 mg Capsule, Extended Release 500 mg PO DAILY loratadine 10 mg Tablet 10 mg PO DAILY cholecalciferol (vitamin D3) [Vitamin D3] 50 mcg (2,000 unit) Capsule 2,000 unit PO DAILY biotin 1,000 mcg Tablet,Chewable 1,000 mcg PO DAILY trazodone 150 mg tablet 150 mg PO QHS PRN Discharge Instructions Instructions: Pelvic fracture Additional Instructions: You were seen in the emergency department today for evaluation after a fall and was found to have a left-sided fracture of your hip. In our department you had a full physical examination performed, met with a member of our orthopedics team, as well as our physical therapist and you were able to walk with a walker. At this time it is safe for you to go home, and we do recommend continuing multimodal pain management to include Tylenol, 1000 mg every 6 hours. Please do not exceed 4 g of Tylenol in a 24-hour period. You should be cautious with [id number] medications that may include Tylenol as this does need to be considered in your total count for the day. I have provided you with a short course of oral morphine for breakthrough pain, please be cautious when taking this medication as it can cause fatigue. You should purchase [id number] Lidoderm patches, 4%, and place those in the area of most pain. These can be worn for 12 hours at a time, and then should be taken off and the skin should be allowed to rest for the next 12 hours. Please follow-up with your primary care provider in the next few days to discuss this visit and any symptoms that change, worsen, or persist. Thank you for allowing us to be part of your care. Referrals: Pawel Izquierdo MD [ [facility] STAFF PHYSICIAN, Orthopaedic Surgical]
--- NOTE | 2024-11-11 07:45 | RT.EKG_ITS ---
APPROVED REPORT Exam: Resting ECG Reason for Exam: Sternal pain Patient Location: E HR:70 bpm ECG Measurements Heart Rate 70 AXIS MO 175 P 46 QRSd 91 QRS 13 QT 430 T 55 QTc 466 Conclusion Sinus rhythm, rate 70 No interval abnormalities No STEMI No signficant changes from priors
--- NOTE | 2024-11-11 08:10 | PT.INIE ---
PT Notes Visit Reasons: Hip Issues Physical Therapy Emergency Room Evaluation Date: 11/11/24 Referring Doctor: Dr. Smith PT Orders: PT CONSULT: Precautions: fall, standard Patient Profile/Admitting Diagnosis: Charity is a 74 year old female with left superior and inferior pubic rami fx resulting from a fall at home yesterday. PMH significant for bilat shoulder OA, 6 months s/p rTSA right and awaiting left rTSA in the future. Social History/Home Situation: Lives in a handicap accessible single level apartment with no steps to enter. Normally ambulates without assistive device and is active and independent at baseline. 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 Has 2 daughters nearby who are supportive, and plans to have 1 stay with her upon returning home. Current Functional Limitations: Has been unable to ambulate since her fall. Equipment Owned/DME: None. Subjective: Charity reports 8/10 pain through the left hip and pelvis. She is nervous about being able to manage the walker with her ongoing shoulder pain and dysfunction. Objective: General Observation: Resting in bed with IV in RUE. Mental Status: A and O x 3. Provides clear and concise history. Pain: 8/10 preambulation. 9/10 post ambulation. Received pain meds 1 hour prior to PT session per nursing ROM: Right Lower Extremity: Functionally demonstrates hip flexion to 70 degrees. Knee motion WFL. Ankle motion WFL Left Lower Extremity: Functionally demonstrates hip flexion to 70 degrees. Knee motion WFL. Ankle motion WFL Strength: Right Lower Extremity: Hip flexion 3 -/5. Quads 3/5. Ankle dorsiflexion 3/5. Left Lower Extremity: Hip flexion 3 -/5. Quads 3/5. Ankle dorsiflexion 3/5. Sensation: Intact distally Bed Mobility/Transfers: Supine?sit: Mod assist Sit?supine: Max assist to lower extremities Sit?stand: SBA with cues for technique Stand?sit: SBA with cues for technique Gait: Ambulates 15 feet with FWW and CGA?SBA. Minimal foot clearance, and significantly increased time to perform. Demonstrates good safety awareness and equipment management. Does report chest pain with weightbearing to walker. Balance: Static Sitting: Good Dynamic Sitting: Fair Static Standing: fair Dynamic Standing: Fair Special Tests: Mobility Limitations Standardized Measure [facility] 6 clicks Basic Mobility Inpatient Short Form: Raw Score: 16 Informed Consent/Education: Patient instructed in purpose of PT consult and plan of care. Treatment: Initial evaluation (46300) Gait training (16220): Fitted with FWW and issued for home use. Instructed in equipment management and technique. Provided with cues for effective transfer techniques. Assessment: Patient is a 74 year old female referred to physical therapy services with the diagnosis of pelvic fracture. Patient presents with clinical signs and symptoms consistent with diagnosis, with associated mobility impairments. She does demonstrate affective safety and independence, although with poorly managed pain. Her goal is to return home, and is appropriate to do so with assistance from her daughter and use of FWW for all weightbearing for pain management. Additionally recommend home health PT to assist with further gains in mobility. She currently demonstrates the following impairment level findings: . 1. Pain related to pelvic fracture 2. Gait impairments 3. Decreased activity tolerance Impairments are contributing to the following functional limitations: 1. Unable to transfer in and out of bed independently 2. Unable to tolerate community distance ambulation 3. Requires assistive device for all ambulation Patient is assessed as a Low 60752 complexity based on the following: History: as above Examination: as above Presentation: stable Decision Making: low Plan of Care/Treatment Plan: Patient seen for single session only for safety assessment and gait training. She was provided with FWW for home utilization, which she requires for all ambulation. Recommend sleeping in her recliner for the time being until she is able to independently transfer in and out of bed. Also recommend home health PT to improve independence with transfers and mobility. DISCHARGE RECOMMENDATIONS: Home with PT and family support TREATMENT CODE/TIME: 11 16?0800 ([id number], [id number]) Mag Biswas, PT, DPT [facility] All Active Problems (Updated 11/11/24 @ 07:44 by Pawel Izquierdo MD) Trochanteric bursitis of left hip (Acute) Fracture of multiple pubic rami (Acute) Medical History Pain in right knee Fracture of patella Abdominal tenderness, left lower quadrant Enthesopathy of hip region Disorder of spinal region Low back pain Neck pain Arthropathy UTI (urinary tract infection) IBS (irritable bowel syndrome) Chronic gingivitis Seasonal allergic rhinitis Hypertensive disorder Insomnia Depressive disorder Nicotine dependence Dysthymia BRAYAN (generalized anxiety disorder) Panic disorder without agoraphobia Hyperlipidemia Onychomycosis due to dermatophyte Surgical History Hx of rotator cuff surgery right Hx of thumb surgery History of orthopedic surgery Hx of colonoscopy
[2024-11-11] MEDS: oxyCODONE 5 MG TAB PO (09:59)
[2024-11-11] MEDS: Acetaminophen 500 MG TAB 1000 MG PO (09:59)
== END 2024-11-11 11:07 | disposition home or self-care (01) ==
PROVIDERS: Emergency Provider Emergency Medicine; PCP Internal Medicine
DX: S32.592A Other specified fracture of left pubis, initial encounter for closed fracture (principal); M70.62 Trochanteric bursitis, left hip; W19.XXXA Unspecified fall, initial encounter
CPT/HCPCS: 99284 ×2; 96374; 96376; 00123; 93005; 97116; 97161; 99283; 73502; 93010; J2270